=== PATIENT | female | born 1985 | race Caucasian/White ===

== ENCOUNTER 2019-04-03 16:04 | Outpatient (CLI) | payer MEDICAID ==
[~2019-04-03] VITALS: Ht 147.3 cm; Wt 85.9 kg
[~2019-04-03 16:04] MED LIST: FER325 PO; PREN-93 PO
[2019-04-03 19:31] VITALS: BP 112/69; PULSE 66; RESP 18; Ht 147.3 cm; Wt 85.9 kg
== END 2019-04-03 23:04 | disposition home or self-care (01) ==
LOC: L-D 16:04 → OBT 16:04 → SDS 19:27 → L-D 19:31 → OBT 23:04
PROVIDERS: ATTEND Obstetrics & Gynecology
DX: O26.893 Other specified pregnancy related conditions, third trimester (principal); Z3A.35 35 weeks gestation of pregnancy; R60.9 Edema, unspecified
CPT/HCPCS: 76818; 80053; 81003; 84560; 85025; Z7500; G0463